=== PATIENT | male | born 1930 | race Caucasian/White ===

== ENCOUNTER 2016-02-18 16:52 | Emergency (ER) | payer MEDICARE, OTHER ==
[~2016-02-18 16:52] MED LIST: ALBUTEROL SULFATE 2.5 MG/0.5 ML AMPUL.NEB NEB ONE
[2016-02-18] MEDS ORDERED: methylPREDNISolone SOD SUCC 125 MG/2 ML VIAL ONE (16:59)
[2016-02-18] MEDS ORDERED: SUCCINYLCHOLINE CHLORIDE 20 MG/ML 10ML VIAL ONE (17:00)
[2016-02-18] MEDS ORDERED: ROCURONIUM BROMIDE 10 MG/ML 5ML VIAL ONE (17:00)
[2016-02-18] MEDS ORDERED: ETOMIDATE 20 MG/10 ML IV ONE ×3 (17:00→17:05)
[2016-02-18] MEDS ORDERED: SUCCINYLCHOLINE CHLORIDE 20 MG/ML 10ML VIAL IVP ONE (17:05)
[2016-02-18] MEDS ORDERED: ROCURONIUM BROMIDE 10 MG/ML 5ML VIAL IVP ONE (17:09)
[2016-02-18] MEDS ORDERED: MIDAZOLAM HCL 2 MG/2 ML VIAL IVP ONE (17:20)
[2016-02-18] MEDS ORDERED: LEVOFLOXACIN 250MG/D5W 50ML 50 ML IV ONE (17:23)
[2016-02-18] MEDS ORDERED: LEVOFLOXACIN 500MG/D5W 100ML 100 ML IV ONE (17:23)
[2016-02-18] MEDS ORDERED: ALBUTEROL SULFATE 2.5 MG/3 ML AMPUL.NEB NEB ONE (17:25)
[2016-02-18] MEDS ORDERED: LEVOFLOXACIN 500MG/D5W 100ML 500 MG in PREMIX BAG 1 BAG IV ONE (17:28)
[2016-02-18] MEDS ORDERED: LEVOFLOXACIN 250MG/D5W 50ML 250 MG in PREMIX BAG 1 BAG IV SCH (17:28)
[2016-02-18] MEDS ORDERED: methylPREDNISolone SOD SUCC 125 MG/2 ML VIAL IVP ONE (17:31)
[2016-02-18] MEDS ORDERED: PROPOFOL 200 MG/20 ML VIAL IV ONE (17:35)
--- NOTE | 2016-02-18 17:36 | ED Physician Documentation ---
Dyspnea - HISTORIAN Historian: patient, spouse - HPI Chief Complaint: Dyspnea Additional Information: [place] very sob confused tnsf here confused sig resp distress. disc cond w. -rhett intubated will [facility] [place] dr bagley. will accept in icu Onset: hours (1) Duration: continues in ED, worse Initiating Event: other (very sob confused pulling at iv and alb neb mask--- intubated - meds given) Severity: moderate Exacerbated By: exertion, coughing Associated Symptoms: other (all familyu at home w/bronchitis like symptoms) - ROS CONST: recent illness GI/: none MS/SKIN/LYMPH: other (diaphoresis) - PAST HX Lung Disease: COPD, bronchitis, other (CVA---CEA) Cardiac Disease: other (htn) PE Risk Factors: hypertension Surgeries/Procedures: denies: prior intubation Other History: CVA - SOCIAL HX Smoking History: non-smoker (SINCE 1964) - FAMILY HX Family History: no significant history - REVIEWED ASSESSMENTS Nursing Assessment Reviewed: Yes Vitals Reviewed: Yes Procedures - Intubation Tube Size (cm): 7.5 Medications: Succinylcholine, Versed Breath Sounds after Intubation: equal Post Intubation Xray: Yes ED Results Lab/Radiology - Orders Orders: ED Orders Category Date Time Status Albuterol Sulfate [Ventolin] Med 02/18/16 17:25 Once 2.5 mg NEB NOW ONE Etomidate [Amidate] Med 02/18/16 17:00 Discontinued 20 mg IV .STK-MED ONE Etomidate [Amidate] Med 02/18/16 17:05 Discontinued 20 mg IV .STK-MED ONE Levofloxacin 250Mg/D5w 50Ml [Levaquin] 50 ml Med 02/18/16 17:23 Discontinued IV .STK-MED Levofloxacin 500Mg/D5w 100Ml [Levaquin] 100 ml Med 02/18/16 17:23 Discontinued IV .STK-MED Rocuronium Adel [Zemuron] Med 02/18/16 17:00 Discontinued 50 mg .ROUTE .STK-MED ONE Succinylcholine Chloride [Quelicin] Med 02/18/16 17:00 Discontinued 200 mg .ROUTE .STK-MED ONE methylPREDNISolone SOD SUCC [Solu-MEDROL] Med 02/18/16 16:59 Discontinued 125 mg .ROUTE .STK-MED ONE methylPREDNISolone SOD SUCC [Solu-MEDROL] Med 02/18/16 17:31 Once 125 mg IVP NOW ONE Dyspnea Physical Exam - EXAM General Appearance: moderate distress, severe distress Neck: nml inspection (old surg scar) Respiratory: decreased air movement, resp. fatigue CVS: tachycardia Abdomen: non-tender, no distention Skin: color nml, diaphoresis. No: cyanosis, pallor Extremities: normal range of motion Neuro/Psych: other (confused pulling at iv and alb mask---due to resp distress) Discharge Clincal Impression: Acute respiratory failure requiring reintubation Comments: disc cond w/ and rhett agreed to et tube resp support called [facility] REC APPROVAL ADM DR NOGUERA TO ICU-RECORDS SENT W/PT Condition: Fair Disposition: 02 XFER SHT-TRM HOSP Decision to Admit: [id number] Decision Time: 17:45
[2016-02-18] MEDS ORDERED: PROPOFOL 500 MG/50 ML VIAL IV ONE (17:40)
--- NOTE | 2016-02-18 17:52 | Diagnostic Imaging Report ---
[facility] [address] [facility].[address] [id number] Report Submission Date: Feb 18, 2016 5:47:31 PM ECONOMIC RESEARCH ASSISTANT Patient Study Name: OREN HORAN Date: Feb 18, 2016 5:40:27 PM ECONOMIC RESEARCH ASSISTANT Modality Type: CR Gender: M Description: CHEST : 30 Institution: [facility] Physician: TIARRA Clark DO Portable view chest Clinical history: Respiratory failure Findings: The heart size is mildly enlarged with pulmonary venous congestion. Endotracheal tube is seen 2.3 centers above the ever. Nasogastric 2 coursing below diaphragm. Distal tip not well visualized. No pleural effusion pneumothorax. Impression: Placement of endotracheal tube as above Electronically signed on Feb 18, 2016 5:47:31 PM ECONOMIC RESEARCH ASSISTANT by: Jeffry MICHELLE
[2016-02-18 18:13] LABS: BASOPHILS % 0.9 (0.0-1.5); EOSINOPHILS % 8.1 % (0.0-6.8); LYMPHOCYTES # 4.7 # k/uL (0.6-4.0); MEAN CORPUSCULAR HEMOGLOBIN 31.7 pg (28.0-34.0); MONOCYTES # 0.9 # k/uL (0.0-0.9); MONOCYTES % 6.5 % (0.0-11.0); NEUTROPHILS # 6.9 # k/uL (1.4-7.7)
[2016-02-18 18:24] LABS: eGFR (African) > 60; eGFR (Non-African) > 60
[2016-02-18] MEDS ORDERED: MIDAZOLAM HCL 5 MG/5 ML VIAL IVP ONE (18:31)
[2016-02-18 19:07] VITALS: BP 190/102
[2016-02-19 05:41] LABS: ABG PH 7.31 (7.35-7.45)
[2016-02-19 05:42] LABS: ABG BASE EXCESS 0.9 (-2 - +2)
== END 2016-02-18 17:55 | disposition short-term general hospital (02) ==
LOC: ED 16:52
DX: J96.00 Acute respiratory failure, unspecified whether with hypoxia or hypercapnia (principal); J20.9 Acute bronchitis, unspecified
CPT/HCPCS: 31500; 36600; 51702; 71010; 80053; 82550; 82803; 83880; 84484; 85025; 85379; 87040; 94640; J0330; J1956; J2250; J2704; J2930; J3490; 96365; 96375; 99284; 99285; S1016